=== PATIENT | female | born 1980 | race Caucasian/White ===

== ENCOUNTER 2020-03-10 14:18 | Outpatient (REF) | payer OTHER, SELFPAY ==
[2020-03-10 15:21] LABS: Glucose Urine UA NEG (NEG); Leukocyte Esterase Urine NEG (NEG); Nitrite Urine NEG (NEG); Specific Gravity - Urine 1.025 (1.005-1.025); Urine Blood NEG (NEG); Urine Ketones NEG (NEG); Urine Protein NEG (NEG-TRACE)
[2020-03-10 15:23] LABS: Appearance Urine CLEAR; Color Urine YELLOW
[2020-03-10 15:45] LABS: Bacteria Urine 1+ /LPF; RBC Urine 0 /HPF (0); Squamous Epithelial Cell Urine 1+ /LPF; WBC Urine 0 /HPF (0-4)
== END 2020-03-10 14:19 | disposition home or self-care (01) ==
LOC: HO.LAB 14:18
PROVIDERS: PCP Family Medicine; Visit Provider Nurse Practitioner
DX: R35.0 Frequency of micturition (principal); R79.89 Other specified abnormal findings of blood chemistry
CPT/HCPCS: 81001